=== PATIENT | male | born 1960 | race Asian ===

== ENCOUNTER 2018-03-22 06:12 | Day surgery (SDC) | payer MEDICAID ==
[2018-03-15 11:45] LABS: BASOPHILS # (AUTO) 0.1 X10'3 (0-0.2); EOSINOPHILS # (AUTO) 0.6 X10'3 (0-0.9); EOSINOPHILS % (AUTO) 6.7 % (0-6); LYMPHOCYTES % (AUTO) 43.5 % (21-51); MEAN CORPUSCULAR HEMOGLOBIN 26.7 PG (27.0-31.0); MEAN CORPUSCULAR HGB CONC 33.1 g/dL (33.0-36.5); MEAN CORPUSCULAR VOLUME 80.8 FL (78-98); MEAN PLATELET VOLUME 8.1 FL (7.4-10.4); MONOCYTES # (AUTO) 0.7 X10'3 (0-0.9); MONOCYTES % (AUTO) 7.7 % (2-12); NEUTROPHILS # (AUTO) 3.8 X10'3 (1.8-7.7); NEUTROPHILS % (AUTO) 41.1 % (42-75); PRE OP HEMATOCRIT 41.8 % (42.0-52.0); PRE OP HEMOGLOBIN 13.8 g/dL (14.0-17.9); PRE OP PLATELET COUNT 294 X10'3 (140-440); RED BLOOD COUNT 5.17 X10'6 (4.70-6.10); RED CELL DISTRIBUTION WIDTH 14.2 % (11.5-14.5)
[2018-03-15 12:57] LABS: ALBUMIN 3.9 G/DL (3.4-5.0); ALKALINE PHOSPHATASE 102 IU/L (46-116); BLOOD UREA NITROGEN 10 MG/DL (7-18); BUN/CREATININE RATIO 12.7 (5.4-32.0); CALCIUM 9.5 MG/DL (8.5-10.1); CHLORIDE 103 MMOL/L (99-107); CREATININE 0.79 MG/DL (0.60-1.10); PRE OP ALT 32 U/L (30-65); PRE OP ANION GAP 10 (8-16); PRE OP AST 21 U/L (10-37); PRE OP BILIRUB, TOTAL 0.4 MG/DL (0.0-1.0); PRE OP GLUCOSE 72 MG/DL (70-104); PRE OP SODIUM 142 MMOL/L (135-145); TOTAL CARBON DIOXIDE 29.5 MMOL/L (24-32); TOTAL PROTEIN 7.7 G/DL (6.4-8.2); eGFR > 90 ML/MIN
[~2018-03-22] VITALS: Ht 172.7 cm; Wt 59.4 kg
[~2018-03-22 06:12] MED LIST: BRIM5DRO16 OP; DORZ10DR2 OP; FAMO40TA7 PO; FLUO15CR TOP; HYDR-3964 PO; MELO-102 PO; TRAV5DRO OP; albuterol 2.5 MG/3 ML nebule NEB ONE; ceFAZolin 1GM/D5W- ADD-VANTAGE 50 ML IV ONE; famotidine 20mg tablet PO ONE; ringers solution, lacted 1,000 ML IV SCH
[2018-03-22] MEDS ORDERED: LIDOcaine 1% (10mg/ml) 2ml vial ONE (06:33)
[2018-03-22 06:45] VITALS: BP 138/79
[2018-03-22] MEDS ORDERED: BUPIVAcaine/PF 2.5mg/ml (0.25%) 10ml vial ONE (06:53)
[2018-03-22] MEDS ORDERED: LIDOcaine 0.5% (5mg/ml) 50ml vial ONE (07:20)
[2018-03-22] MEDS ORDERED: morphine 4 MG/ML inj SYRINge IV PRN ×2 (07:30)
[2018-03-22] MEDS ORDERED: ondansetron/PF 4mg/2ml inj IV PRN (07:30)
[2018-03-22] MEDS ORDERED: labetalol 20mg/4ml (5mg/ml) syringe IV PRN (07:30)
[2018-03-22] MEDS ORDERED: ringers solution, lacted 1,000 ML IV SCH (07:30)
[2018-03-22] MEDS ORDERED: fentaNYL/PF 50MCG/1 ML 2ML syringe IV PRN ×2 (07:30)
[2018-03-22] MEDS ORDERED: hydrALAZINE 20mg/ml inj. IV PRN (07:30)
[2018-03-22] MEDS ORDERED: fentaNYL/PF 50MCG/1 ML 2ML syringe ONE (08:49)
[2018-03-22] MEDS ORDERED: MIDAZolam 5mg/5ml vial ONE (08:50)
[2018-03-22 09:20] VITALS: BP 135/76
--- NOTE | 2018-03-22 09:20 | NUR ---
Received from OR via BED, accompanied by Anesthesiologist DR COLVIN and report given by Anesthesiolgist. PATIENT A&OX4, DENIES PAIN, V/S WNL, NEUROVASCULAR CHECKS INTACT, 20G PIV LUE, SCD ON, DRESSING TO RIGHT ELBOW CDI ELEVATED WITH ICEBAG APPLIED.
[2018-03-22 09:30] VITALS: BP 152/98
[2018-03-22 09:40] VITALS: BP 142/82
--- NOTE | 2018-03-22 09:40 | NUR ---
PATIENT A&OX4, DENIES PAIN, V/S WNL, NEUROVASCULAR CHECKS INTACT, 20G PIV LUE D/C, SCD OFF, DRESSING TO RIGHT ELBOW CDI ELEVATED WITH ICEBAG APPLIED. I HAVE REVIEWED D/C INSTRUCTIONS WITH PATIENT AND FAMILY AND THEY HAVE VERBALIZED UNDERSTANDING. PATIENT D/C HOME WITH ALL BELONGINGS AND FAMILY GAVE TRANSPORT HOME.
== END 2018-03-22 09:40 | disposition home or self-care (01) ==
LOC: PAS 06:12
PROVIDERS: ATTEND Orthopaedic Surgery Hand Surgery
DX: M77.11 Lateral epicondylitis, right elbow (principal); M25.521 Pain in right elbow; J45.909 Unspecified asthma, uncomplicated; H40.9 Unspecified glaucoma; F17.210 Nicotine dependence, cigarettes, uncomplicated; Z79.899 Other long term (current) drug therapy
CPT/HCPCS: 24358; 36415; 71046; 80053; 82948; 85025; 93005; A6222; A6449; J0690; J2001; J2250; J3010; J3490; J7120

== ENCOUNTER 2019-07-25 05:35 | Day surgery (SDC) | payer MEDICAID ==
[2019-07-18 15:31] LABS: BASOPHILS # (AUTO) 0.1 X10'3 (0-0.2); BASOPHILS % (AUTO) 0.7 % (0-1); EOSINOPHILS # (AUTO) 0.1 X10'3 (0-0.9); EOSINOPHILS % (AUTO) 0.5 % (0-6); LYMPHOCYTES % (AUTO) 13.5 % (21-51); MEAN CORPUSCULAR VOLUME 81.7 FL (78-98); MEAN PLATELET VOLUME 8.1 FL (7.4-10.4); MONOCYTES # (AUTO) 0.3 X10'3 (0-0.9); NEUTROPHILS # (AUTO) 12.1 X10'3 (1.8-7.7); NEUTROPHILS % (AUTO) 83.3 % (42-75); PRE OP HEMATOCRIT 42.1 % (42.0-52.0); PRE OP HEMOGLOBIN 13.9 g/dL (14.0-17.9); PRE OP PLATELET COUNT 324 X10'3 (140-440); RED BLOOD COUNT 5.15 X10'6 (4.70-6.10); RED CELL DISTRIBUTION WIDTH 13.9 % (11.5-14.5)
[2019-07-18 15:49] LABS: ALBUMIN 4.1 G/DL (3.4-5.0); ALKALINE PHOSPHATASE 116 IU/L (46-116); BLOOD UREA NITROGEN 9 MG/DL (7-18); BUN/CREATININE RATIO 9.9 (5.4-32.0); CALCIUM 9.5 MG/DL (8.5-10.1); CHLORIDE 106 MMOL/L (99-107); CREATININE 0.91 MG/DL (0.60-1.10); PRE OP ALT 31 U/L (30-65); PRE OP ANION GAP 9 (8-16); PRE OP AST 22 U/L (10-37); PRE OP BILIRUB, TOTAL 0.6 MG/DL (0.0-1.0); PRE OP GLUCOSE 106 MG/DL (70-104); PRE OP POTASSIUM 3.7 MMOL/L (3.4-5.1); PRE OP SODIUM 144 MMOL/L (135-145); TOTAL CARBON DIOXIDE 29.2 MMOL/L (24-32); TOTAL PROTEIN 8.3 G/DL (6.4-8.2); eGFR 86 ML/MIN
[~2019-07-25] VITALS: Ht 172.7 cm; Wt 60.3 kg
[~2019-07-25 05:35] MED LIST changes: +ALBU90AE2 INH; +DULO30CA52 PO; +LISI10TA4 PO; -albuterol 2.5 MG/3 ML nebule NEB ONE; -ceFAZolin 1GM/D5W- ADD-VANTAGE 50 ML IV ONE
[2019-07-25] MEDS ORDERED: cefazolin/dext.iso 2gm/50ml 50 ML IV ONE (06:00)
[2019-07-25 06:10] VITALS: BP 149/85
[2019-07-25] MEDS ORDERED: BUPIVAcaine/PF 2.5 mg/ml (0.25%) 30ml vial ONE (06:34)
[2019-07-25] MEDS ORDERED: ringers solution, lacted 1,000 ML IV SCH (07:17)
[2019-07-25] MEDS ORDERED: proCHLORperazine 10 MG/2 ml inj IV PRN (07:20)
[2019-07-25] MEDS ORDERED: morphine 2 MG/ML inj. syringe IV PRN (07:20)
[2019-07-25] MEDS ORDERED: ondansetron/PF 4mg/2ml inj IV PRN (07:20)
[2019-07-25] MEDS ORDERED: meperidine/PF 25mg/ml syringe IV PRN ×3 (07:20)
[2019-07-25] MEDS ORDERED: morphine 4 MG/ML inj SYRINge IV PRN (07:20)
[2019-07-25] MEDS ORDERED: LIDOcaine 1% 30ml preserv. free vial ONE (07:22)
[2019-07-25] MEDS ORDERED: ketorolac trometh. 30mg/ml inj. ONE (08:54)
[2019-07-25] MEDS ORDERED: 0.9 % SODIUM CHLORIDE 10 ML VIAL ONE (08:54)
[2019-07-25] MEDS ORDERED: fentaNYL/PF 50MCG/1 ML 2ML syringe ONE (09:03)
[2019-07-25] MEDS ORDERED: MIDAZolam 5mg/5ml vial ONE (09:03)
--- NOTE | 2019-07-25 09:32 | NUR ---
Received from OR via , accompanied by Anesthesiologist DR BUSH and report given by Anesthesiolgist. AWAKENS TO VOICE. VITALS STABLE. DRESSING DI. SAMSON PAIN.
[2019-07-25 09:38] VITALS: BP 128/84
[2019-07-25 09:48] VITALS: BP 125/77
[2019-07-25 09:58] VITALS: BP 138/85
[2019-07-25 10:08] VITALS: BP 126/78
--- NOTE | 2019-07-25 10:08 | NUR ---
AWAKE AND ORIENTED. VITALS STABLE. DRESSING DI. SAMSON PAIN. HOME WITH HIS SON AT THIS TIME.
== END 2019-07-25 10:08 | disposition home or self-care (01) ==
LOC: PAS 05:35
PROVIDERS: ATTEND Orthopaedic Surgery Hand Surgery
DX: M77.12 Lateral epicondylitis, left elbow (principal); J44.9 Chronic obstructive pulmonary disease, unspecified; F17.210 Nicotine dependence, cigarettes, uncomplicated; I10 Essential (primary) hypertension; G89.29 Other chronic pain; H40.9 Unspecified glaucoma; F32.9 Major depressive disorder, single episode, unspecified; K21.9 Gastro-esophageal reflux disease without esophagitis; Z86.19 Personal history of other infectious and parasitic diseases; Z11.59 Encounter for screening for other viral diseases; Z79.899 Other long term (current) drug therapy
CPT/HCPCS: 24358; 36415; 80053; 85025; 93005; A6222; J1885; J2001; J2250; J3010; J3490; J7120; U0003; A4215; A4615; A4618; A6446; A6449